=== PATIENT | female | born 1985 | race Caucasian/White ===

== ENCOUNTER 2020-10-14 11:06 | Outpatient (REF) | payer OTHER, SELFPAY ==
[2020-10-16 15:46] LABS: HPV mRNA E6/E7 rflx Not Detected (Not Detected)
== END 2020-10-14 11:07 | disposition home or self-care (01) ==
LOC: HO.LAB 11:06
PROVIDERS: Visit Provider Advanced Practice Midwife
DX: Z01.419 Encounter for gynecological examination (general) (routine) without abnormal findings (principal); Z11.51 Encounter for screening for human papillomavirus (HPV); E28.2 Polycystic ovarian syndrome; E66.01 Morbid (severe) obesity due to excess calories; Z68.42 Body mass index [BMI] 45.0-49.9, adult; L68.0 Hirsutism
CPT/HCPCS: 81025; 87624; 88142

== ENCOUNTER 2022-01-26 12:39 | Outpatient (REF) | payer OTHER, SELFPAY ==
[2022-01-26 14:37] LABS: Thyroid Stimulating Hormone 2.92 uIU/mL (0.32-4.0)
[2022-01-28 00:38] LABS: DHEA Sulfate 256 mcg/dL (19-237); Prolactin 8.8 ng/mL
[2022-01-31 16:47] LABS: Testosterone, Free 5.8 pg/mL (0.1-6.4); Testosterone, Total 30 ng/dL (2-45)
== END 2022-01-26 12:40 | disposition home or self-care (01) ==
LOC: HO.LAB 12:39
PROVIDERS: Visit Provider Advanced Practice Midwife
DX: L68.0 Hirsutism (principal)
CPT/HCPCS: 36415; 82627; 83498; 84146; 84402; 84403; 84443

== ENCOUNTER → 2022-02-10 09:51 | Outpatient (BNVA) | payer OTHER, SELFPAY | PROVIDERS: PCP Internal Medicine; Visit Provider Advanced Practice Midwife | DX: E28.2 Polycystic ovarian syndrome (principal); L68.0 Hirsutism; E66.01 Morbid (severe) obesity due to excess calories; R79.89 Other specified abnormal findings of blood chemistry; Z30.09 Encounter for other general counseling and advice on contraception; Z71.2 Person consulting for explanation of examination or test findings; Z68.42 Body mass index [BMI] 45.0-49.9, adult | CPT/HCPCS: 99212 ==

== ENCOUNTER → 2022-03-06 14:19 | Outpatient (BNVA) | payer OTHER, SELFPAY | PROVIDERS: PCP Internal Medicine; Visit Provider Internal Medicine Endocrinology, Diabetes & Metabolism | DX: E28.2 Polycystic ovarian syndrome (principal); L68.0 Hirsutism; E66.9 Obesity, unspecified; Z68.42 Body mass index [BMI] 45.0-49.9, adult | CPT/HCPCS: 99202 ==

== ENCOUNTER 2022-05-29 17:17 | Outpatient (REF) | payer OTHER, SELFPAY ==
[2022-05-29 18:30] LABS: Creatinine, mg/dL 80.95
[2022-05-29 19:11] LABS: Creatinine, 24Hr Urine 1.5 G/Day (1.0-2.0); Total Volume 24 Hour Urine 1800 mL
[2022-06-07 17:44] LABS: Cortisol Free, 24 Hr Urine 62.2 mcg/24 h (4.0-50.0); Creatinine, 24 Hr Urine 1.47 g/24 h (0.50-2.15); Total Volume, 24 Hr Urine 1800 mL
== END 2022-05-29 17:18 | disposition home or self-care (01) ==
LOC: HO.LNP 17:17
PROVIDERS: Visit Provider Internal Medicine Endocrinology, Diabetes & Metabolism
DX: E28.2 Polycystic ovarian syndrome (principal)
CPT/HCPCS: 82530; 82570

== ENCOUNTER → 2022-06-10 10:02 | Outpatient (BNVA) | payer OTHER, SELFPAY | PROVIDERS: PCP Internal Medicine; Visit Provider Dietitian, Registered | DX: E66.9 Obesity, unspecified (principal); Z68.42 Body mass index [BMI] 45.0-49.9, adult; Z71.3 Dietary counseling and surveillance | CPT/HCPCS: 97802 ==

== ENCOUNTER 2022-06-11 14:32 | Outpatient (REF) | payer OTHER, SELFPAY ==
[2022-06-19 11:54] LABS: Saliva Cortisol 0.07 mcg/dL
== END 2022-06-11 14:33 | disposition home or self-care (01) ==
LOC: HO.LNP 14:32
PROVIDERS: Visit Provider Internal Medicine Endocrinology, Diabetes & Metabolism
DX: E66.01 Morbid (severe) obesity due to excess calories (principal); Z68.42 Body mass index [BMI] 45.0-49.9, adult
CPT/HCPCS: 82530

== ENCOUNTER → 2022-08-05 10:02 | Outpatient (BNVA) | payer OTHER, SELFPAY | PROVIDERS: PCP Internal Medicine; Visit Provider Internal Medicine Endocrinology, Diabetes & Metabolism | DX: E28.2 Polycystic ovarian syndrome (principal) | CPT/HCPCS: 99212 ==